=== PATIENT | female | born 1995 | race Caucasian/White ===

== ENCOUNTER 2017-05-09 08:25 | Emergency (ER) | payer BC ==
[2017-05-09 08:35] VITALS: BP 126/81
--- NOTE | 2017-05-09 09:05 | UC ---
Respiratory Complaint HPI - HPI Summary HPI Summary: Patient presents with a past medical history of asthma. She reports she had been ill for 7 days, with dry cough, which is not productive, fever and generalized feeling of fatigue/ She states her room-mate has had the flu and she believes she now has it also. She states she used her albuterol last night, because she has slight chest heaviness/congestion as well. She denies abdominal pain, nausea, vomiting or diarrhea. - History of Current Complaint Chief Complaint: UCRespiratory Stated Complaint: cough, AND ACHES Time Seen by Provider: 05/09/17 08:52 Hx Obtained From: Patient Hx Last Menstrual Period: IUD Onset/Duration: Gradual Onset, Lasting Days Timing: Constant Severity Initially: Mild Severity Currently: Moderate Pain Intensity: 0 Character: Cough: Productive Aggravating Factors: Nothing Alleviating Factors: Bronchodilator Associated Signs And Symptoms: Positive: Fever, URI, Nasal Congestion - Risk Factors Pulmonary Embolism Risk Factors: Negative Cardiac Risk Factors: Negative Pseudomonas Risk Factors: Chronic Steriod Use Past 3 Months - inhaled steroids for asthma - Allergies/Home Medications Allergies/Adverse Reactions: Allergies Allergy/AdvReac Type Severity Reaction Status Date / Time No Known Allergies Allergy Verified 05/09/17 08:35 Home Medications: Home Medications Albuterol HFA INHALER* [Ventolin HFA Inhaler*] 05/09/17 [History Confirmed ] Dextromethorphan-Phenylephrine [Daytime Cold & Flu Relief 10-5-325 mg] 30 ml PO DAILY 05/09/17 [History Confirmed 05/09/17] Ibuprofen [Ibuprofen 200] 2 tab PO Q6HR PRN 05/09/17 [History Confirmed 05/09/17 ] PMH/Surg Hx/FS Hx/Imm Hx Previously Healthy: Yes Respiratory History: Asthma - Surgical History Surgical History: None - Family History Known Family History: Positive: None - parents and grandparents alive and well. - Social History Occupation: Student Lives: Dormitory/Roommates Alcohol Use: Weekly Alcohol Amount: "socially on the weekends" Substance Use Type: None Smoking Status (MU): Never Smoked Tobacco Review of Systems Constitutional: Fever, Fatigue Skin: Negative Eyes: Negative ENT: Negative Respiratory: Cough Cardiovascular: Negative Gastrointestinal: Negative Genitourinary: Negative Motor: Negative Neurovascular: Negative Musculoskeletal: Negative Neurological: Negative Psychological: Negative Is Patient Immunocompromised?: No All Other Systems Reviewed And Are Negative: Yes Physical Exam Triage Information Reviewed: Yes Appearance: Well-Appearing Vital Signs: Initial Vital Signs Temp 97.7 F 05/09/17 08:30 Pulse 96 05/09/17 08:30 Resp 14 05/09/17 08:30 BP 126/81 05/09/17 08:30 Pulse Ox 100 05/09/17 08:30 Vital Signs Reviewed: Yes Eye Exam: Normal ENT Exam: Normal ENT: Positive: Pharynx normal, Uvula midline Neck exam: Normal Neck: Positive: 1 Respiratory Exam: Normal Respiratory: Positive: Lungs clear, Normal breath sounds, No respiratory distress, No accessory muscle use Cardiovascular Exam: Normal Cardiovascular: Positive: RRR Skin Exam: Normal UC Diagnostic Evaluation - Laboratory O2 Sat by Pulse Oximetry: 100 Respiratory Course/Dx - Course Course Of Treatment: Patient tested for influenza and was positive for A, chest xray was negative. She was RX Tamiflu and discharged home. - Differential Dx/Diagnosis Differential Diagnosis/HQI/PQRI: Influenza Provider Diagnoses: influenza Discharge - Discharge Plan Condition: Stable Disposition: HOME Prescriptions: Oseltamivir CAP* [Tamiflu CAP*] 75 mg PO BID #10 cap Patient Education Materials: Influenza (DC) Referrals: [facility] [place] [Primary Care Provider] -
--- NOTE | 2017-05-09 09:51 | RAD ---
INDICATION: Cough COMPARISON: None TECHNIQUE: PA and lateral dual-energy views were obtained. FINDINGS: Bones/Soft Tissues: There are no acute bony findings. Cardiomediastinal: The cardiomediastinal silhouette is normal. Lungs: There are no infiltrates. Pleura: There are no pleural effusions. Other: None IMPRESSION: NO ACTIVE DISEASE
== END 2017-05-09 10:10 | disposition home or self-care (01) ==
LOC: UCEAST 08:25
DX: J09.X2 Influenza due to identified novel influenza A virus with other respiratory manifestations (principal); Z97.5 Presence of (intrauterine) contraceptive device; J45.909 Unspecified asthma, uncomplicated
CPT/HCPCS: 71046; 87502; 99212; G0463